=== PATIENT | female | born 1970 | race Two or more races ===

== ENCOUNTER 2021-12-14 14:37 | Emergency (ER) | payer OTHER ==
[~2021-12-14] VITALS: Ht 157.5 cm; Wt 54.4 kg
[2021-12-14] MEDS ORDERED: ACETAMINOPHEN 500 MG TAB PO ONE (17:15)
[2021-12-14 17:22] VITALS: BP 130/76
[2021-12-14] MEDS ORDERED: NAPR500T31 PO (18:03)
== END 2021-12-14 18:14 | disposition home or self-care (01) ==
LOC: ER 14:37
DX: S60.211A Contusion of right wrist, initial encounter (principal); R51.9 Headache, unspecified; W20.8XXA Other cause of strike by thrown, projected or falling object, initial encounter; Y93.89 Activity, other specified; Y92.89 Other specified places as the place of occurrence of the external cause; Y99.8 Other external cause status
CPT/HCPCS: 70450; 73110

== ENCOUNTER 2024-11-11 16:17 | Emergency (ER) | payer SELFPAY ==
[~2024-11-11] VITALS: Ht 149.9 cm; Wt 62.6 kg
[~2024-11-11 16:17] MED LIST: NAPR-746 PO
--- NOTE | 2024-11-11 20:37 | ED.PDOC ---
Jhoan. trauma (HPI) HPI Comments 54-year-old female presents to ER with complaints of fall injury x1 day. Patient reports that she tripped and fell inside a cooler at work at 10:30 am prior to arrival to ER injuring her left ankle and sustained abrasions to left upper back. Notes she did hit the left side of her face upon falling, denying head jury/LOC. Patient presents to ER ambulatory on arrival, alert and oriented x4 with steady gait, in no distress. Denies headache, neck pain, facial pain, numbness/tingling, nausea/vomiting, back pain, shoulder pain, shortness of breath, chest pain or any further symptoms/complaints Chief Complaint: Fall Injury Time Seen by MD: 18:06 Primary Care Provider: [employer] Reviewed notes: Nurses Notes, Medications, Allergies Allergies: Coded Allergies: NO KNOWN ALLERGIES (Unverified , 12/14/21) Home Meds Active Scripts Naproxen (Naproxen) 500 Mg Tab, 500 MG PO BID, #30 TAB Prov:JANELLE TAYLOR 12/14/21 Information Source: Patient Mode of Arrival: Ambulatory Past Medical History PAST MEDICAL HISTORY: Denies Surgical History: Denies all surgeries DIRECTOR OF PEOPLE History: No Pertinent DIRECTOR OF PEOPLE History Family History Family History: Reviewed,noncontributory to illness Social History Smoker: Non-Smoker Alcohol: Denies ETOH Use Drugs: Denies Drug Use Lives In: Home Constitutional: denies: chills, diaphoresis, fatigue, fever, malaise, sweats, weakness, others EENTM: denies: blurred vision, double vision, ear bleeding, ear discharge, ear drainage, ear pain, ear ringing, eye pain, eye redness, hearing loss, mouth pain, mouth swelling, nasal discharge, nose bleeding, nose congestion, nose pain, photophobia, tearing, throat pain, throat swelling, voice changes, others Respiratory: denies: cough, hemoptysis, orthopnea, SOB at rest, shortness of breath, SOB with excertion, stridor, wheezing, others Cardiovascular: denies: chest pain, dizzy spells, diaphoresis, Dyspnea on exertion, edema, irregular heart beat, left arm pain, lightheadedness, palpitations, PND, syncope, others Gastrointestinal: denies: abdomen distended, abdominal pain, blood streaked bowels, constipated, diarrhea, dysphagia, difficulty swallowing, hematemesis, melena, nausea, poor appetite, poor fluid intake, rectal bleeding, rectal pain, vomiting, others Genitourinary: denies: abnormal vagina bleeding, burning, dyspareunia, dysuria, flank pain, frequency, hematuria, incontinence, pain, , vagina discharge, urgency, others Neurological: denies: dizziness, fainting, headache, left sided numbness, left sided weakness, numbness, paresthesia, pre-existing deficit, right sided numbness, right sided weakness, seizure, speech problems, tingling, tremors, weakness, others Musculoskeletal: reports: others (As stated in HPI) Integumetry: reports: others (As stated in HPI) Allergic/Immunocompromised: denies: Difficulty Healing, Frequent Infections, Hives, Itching, others Hematologic/Lymphatic: denies: anemia, blood clots, easy bleeding, easy bruising, swollen glands, others Endocrine: denies: excessive hunger, excessive sweating, excessive thirst, excessive urination, flushing, intolerance to cold, intolerance to heat, unexplained weight gain, unexplained weight loss, others Psychiatric: denies: anxiety, bipolar disorder, depression, hopeless, panic disorder, schizophrenia, sleepless, suicidal, others Physical Exam General Appearance: No Apparent Distress HEENT: Normal ENT Inspection, PERRL/EOMI, Pharynx Normal, TMs Normal Neck: Full Range of Motion, Non-Tender, Normal Respiratory: Chest Non-Tender, Lungs Clear, No Accessory Muscle Use, No Respiratory Distress, Normal Breath Sounds Cardiovascular: No Murmur, No Gallop, Regular Rate/Rhythm Breast Exam: Deferred Gastrointestinal: Non Tender, No Pulsatile Mass, Soft Genitalia: Deferred Pelvic: Deferred Rectal: Deferred Extremities: Normal capillary refill, Normal range of motion Musculoskeletal : Extremity Location: Ankle (Slight TTP to right lateral malleolus noted wit hout any skin changes/deformity appreciated. No TTP to right foot noted. Pulses intact. Steady gait noted), Back (Minimal abrasions noted to left upper back. No bony tenderness appreciated) Neurologic: Alert, equipment engineering technician II-XII nml as Tested, No Motor Deficits, Normal Affect, Normal Mood, No Sensory Deficits Cerebellar Function: Normal Reflexes: Normal Skin: Dry, Warm Peripheral Pulses: 2+ carotid (R), 2+ carotid (L), 2+ dorsalis pedis (R), 2+ dorsalis pedis (L), 2+ Radial (R), 2+ Radial (L), 2+ Brachial (R), 2+ Brachial (L) Lymphatic: No Adenopathy Was a procedure done? Was a procedure done?: No Sedation Sedation?: No Differential Diagnosis Multiple Trauma: Closed Head Injury, Fractures, Vascular Injury Neck Injury: Spinal Cord Injury X-Ray, Labs, Meds, VS Vital Signs Date Time Temp Pulse Resp B/P (MAP) Pulse Ox O2 Delivery O2 Flow Rate FiO2 11/11/24 21:01 98.0 92 17 140/66 (90) 98 98.0 11/11/24 21:01 92 17 98 Room Air 11/11/24 16:25 98.8 103 16 151/85 (107) 96 98.8 PATIENT: PARVIZ CONKLINACCT: [id number]: [id number] : 1970 LOC: ER ROOM / BED: / AGE / SEX: 54 / F ADM STATUS: REG ER SERVICE 30 ORDERING PHYSICIAN: BILLY ESPINAL PROCEDURE(s): RANKL - R ANKLE 3 VIEW REASON: right ankle pain ORDER NUMBER(s): [id number], ACCESSION NUMBER(s): [id number] INDICATION: right ankle pain TECHNIQUE: 4 radiographic views of the right ankle were obtained. COMPARISON: None FINDINGS: The ankle mortise appears intact. There is no evidence of acute fracture or dislocation.The visualized joint space is well maintained.The alignment is anatomical.The surrounding soft tissues are unremarkable.There is no evidence of bony lesions or erosions.The pre-talar, juxta-articular and pre- achilles fat pad appear unremarkable IMPRESSION: 1. No acute fracture dislocation ATED BY: FUNMI POST MD DICTATED DATE/TIME: 11/11/242111 SIGNED BY: FUNMI POST MD SIGNED DATE/TIME: 11/11/242111 CC: Right ankle x-ray reviewed Patient neurovascularly intact Sanju wrap applied Advised on rest/no strenuous activity, elevation and alternate ice on/off as needed for pain Workman's comp paperwork filled out Advised to follow up with PCP and workman's comp PCP in 1-2 days Patient verbalized understanding and agreeable with current plan of care Advised to return to ER immediately if symptoms worsen Images Reviewed?: Images reviewed and evaluated by me Time of 1ST Reevaluation: 21:14 Reevaluation 1ST: N/A Patient Education/Counseling: Diagnosis, Treatment, Prognosis, Need For Follow Up Family Education/Counseling: No Family Present Departure 1 Departure Time of Disposition: 21:30 Impression: Primary Impression: Right ankle sprain Qualified Codes: S93.401A - Sprain of unspecified ligament of right ankle, initial encounter Additional Impression: Abrasion of back Qualified Codes: S20.419A - Abrasion of unspecified back wall of thorax, initial encounter Disposition: HOME / SELF CARE / HOMELESS Condition: Stable e-Prescriptions Acetaminophen (Acetaminophen) 500 Mg Tab 500 MG PO Q4HPRN, #30 TAB 0 Refills Prov: BILLY ESPINAL 11/11/24 Discharged With: Friend Critical Care Note Critical Care Time?: No Stability Stability form required: No Heart Score Heart Score: Heart Score Response (Comments) Value History N/A 0 EKG N/A 0 Age N/A 0 Risk Factors N/A 0 Troponin N/A 0 Total 0 BILLY ESPINAL November 11, 2024 20:37
[2024-11-11 21:01] VITALS: BP 140/66; PULSE 92; RESP 17; TEMP 98; O2SAT 98
--- NOTE | 2024-11-11 21:15 | DVH ---
INDICATION: right ankle pain TECHNIQUE: 4 radiographic views of the right ankle were obtained. COMPARISON: None FINDINGS: The ankle mortise appears intact. There is no evidence of acute fracture or dislocation.The visualized joint space is well maintained.The alignment is anatomical.The surrounding soft tissues a re unremarkable.There is no evidence of bony lesions or erosions.The pre-talar, juxta-articular and p re-achilles fat pad appear unremarkable IMPRESSION: 1. No acute fracture dislocation
[2024-11-11] MEDS ORDERED: ACET500T58 PO (21:33)
== END 2024-11-11 22:22 | disposition home or self-care (01) ==
LOC: ER 16:23
DX: S93.401A Sprain of unspecified ligament of right ankle, initial encounter (principal); S20.412A Abrasion of left back wall of thorax, initial encounter; Z79.899 Other long term (current) drug therapy; W01.0XXA Fall on same level from slipping, tripping and stumbling without subsequent striking against object, initial encounter; Y93.89 Activity, other specified; Y92.89 Other specified places as the place of occurrence of the external cause; Y99.8 Other external cause status
CPT/HCPCS: 73610